=== PATIENT | female | born 1985 | race Caucasian/White ===

== ENCOUNTER 2024-12-02 12:16 | Emergency (ER) | payer OTHER ==
[2024-12-02 12:31] VITALS: BP 136/91; PULSE 97; RESP 20; TEMP 98.3; BMI 36.8
[2024-12-02] MEDS ORDERED: DIPHTH,PERTUSS(ACELL),TET 0.5 ML DISP.SYRIN IM ONE (13:15)
[2024-12-02] MEDS ORDERED: BACITRACIN ZINC 15 GM TUBE TOPICAL OINTMENT ONE (13:15)
[2024-12-02] MEDS: BACITRACIN ZINC 15 GM TUBE TOPICAL OINTMENT TP ONE (13:16)
[2024-12-02] MEDS: DIPHTH,PERTUSS(ACELL),TET 0.5 ML DISP.SYRIN IM ONE (13:16)
== END 2024-12-02 13:34 | disposition home or self-care (01) ==
LOC: JERFT 12:16
PROC: 3E0234Z Introduction of Serum, Toxoid and Vaccine into Muscle, Percutaneous Approach (ICD-10-PCS; principal; 2024-12-02)
DX: S71.111A Laceration without foreign body, right thigh, initial encounter (principal); X58.XXXA Exposure to other specified factors, initial encounter
CPT/HCPCS: 90471; 90715; 99283-25